=== PATIENT | male | born 2005 | race African-American/Black ===

== ENCOUNTER 2023-03-02 15:10 | Emergency (ER) | payer BC ==
[2023-03-02 15:14] VITALS: TEMP 98; BMI 24.4
[2023-03-02] MEDS ORDERED: SODIUM CHLORIDE 0.9% 500 ML INFUS.BAG IV ONE ×2 (15:22→16:53)
[2023-03-02] MEDS ORDERED: ALBUTEROL SO4 2.5/IPRATROPIUM 0.5 INH SOL 3 ML VIAL.NEB. NEB ONE ×2 (15:28→15:32)
[2023-03-02 16:28] LABS: HEMATOCRIT 51.2 % (35.4-49); HEMOGLOBIN 16.6 G/dL (11.7-16.9); MCHC 32.4 g/dl (32.0-35.9); MEAN CELL VOLUME 89.6 fl (80-96); MEAN PLT VOLUME 9.7 fl (7.5-11.1); PLATELET COUNT 242.7 10^3/uL (134-434); RBC 5.71 10^6/uL (4.00-5.60); RDW 13.2 % (11.9-15.9); WHITE BLOOD COUNT 16.3 10^3/uL (4.0-10.8)
[2023-03-02 16:30] LABS: ALBUMIN 4.8 g/dl (3.4-5.0); BILIRUBIN,TOTAL 0.9 mg/dl (0.2-1); CALCIUM 10.8 mg/dl (8.5-10.1); CREATININE 1.5 mg/dl (0.6-1.3); POTASSIUM 4.5 mmol/L (3.5-5.1); TOT PROT 7.9 g/dl (6.4-8.2)
[2023-03-02 17:15] LABS: PLATELET ESTIMATE ADEQUATE
[2023-03-02 18:47] VITALS: BP 120/64; PULSE 83; RESP 18
[2023-03-02 18:52] LABS: CALCIUM 9.3 mg/dl (8.5-10.1); CREATININE 1.2 mg/dl (0.6-1.3); POTASSIUM 3.6 mmol/L (3.5-5.1)
== END 2023-03-02 19:55 | disposition home or self-care (01) ==
LOC: FER 15:10
PROC: 3E0F7GC Introduction of Other Therapeutic Substance into Respiratory Tract, Via Natural or Artificial Opening (ICD-10-PCS; principal; 2023-03-02)
DX: R55 Syncope and collapse (principal); R11.2 Nausea with vomiting, unspecified; R42 Dizziness and giddiness; E86.0 Dehydration; Z20.822 Contact with and (suspected) exposure to COVID-19
CPT/HCPCS: 0241U-QW; 36415; 71046-TC-FY; 80048; 80053; 82550; 82553; 85027; 93005; 99285-25